=== PATIENT | female | born 1995 | race Caucasian/White ===

== ENCOUNTER 2016-09-20 20:30 | Outpatient (CLI) | payer OTHER ==
[2016-10-19] MEDS ORDERED: PRENATAL VIT1 TAB PO (11:20)
[2016-10-19] MEDS ORDERED: IRON325 M1 PO (11:20)
[2016-10-19] MEDS ORDERED: PROTONIX40 MG PO (11:20)
[2016-10-19] MEDS ORDERED: COLACE-DPS100 MG PO (11:20)
[2016-10-19] MEDS ORDERED: MOTRIN-DPS800 MG PO (11:21)
== END 2016-09-20 22:00 | disposition home or self-care (01) ==
LOC: BC 20:30
DX: O99.89 Other specified diseases and conditions complicating pregnancy, childbirth and the puerperium (principal); R10.2 Pelvic and perineal pain; Z3A.37 37 weeks gestation of pregnancy

== ENCOUNTER 2016-09-30 20:05 | Outpatient (CLI) | payer OTHER ==
[2016-10-19] MEDS ORDERED: IRON325 M1 PO (11:20)
[2016-10-19] MEDS ORDERED: COLACE-DPS100 MG PO (11:20)
[2016-10-19] MEDS ORDERED: PRENATAL VIT1 TAB PO (11:20)
[2016-10-19] MEDS ORDERED: PROTONIX40 MG PO (11:20)
[2016-10-19] MEDS ORDERED: MOTRIN-DPS800 MG PO (11:21)
== END 2016-09-30 22:20 | disposition home or self-care (01) ==
LOC: 2LDRP 20:05 → BC 20:05
DX: O99.89 Other specified diseases and conditions complicating pregnancy, childbirth and the puerperium (principal); R10.9 Unspecified abdominal pain; Z3A.39 39 weeks gestation of pregnancy

== ENCOUNTER 2016-10-08 19:20 | Outpatient (CLI) | payer OTHER, BC ==
[2016-10-19] MEDS ORDERED: COLACE-DPS100 MG PO (11:20)
[2016-10-19] MEDS ORDERED: PROTONIX40 MG PO (11:20)
[2016-10-19] MEDS ORDERED: IRON325 M1 PO (11:20)
[2016-10-19] MEDS ORDERED: PRENATAL VIT1 TAB PO (11:20)
[2016-10-19] MEDS ORDERED: MOTRIN-DPS800 MG PO (11:21)
== END 2016-10-08 21:32 | disposition home or self-care (01) ==
LOC: BC 19:20 → 2LDRP 19:20 → BC 21:32
DX: O99.89 Other specified diseases and conditions complicating pregnancy, childbirth and the puerperium (principal); R10.9 Unspecified abdominal pain; Z3A.39 39 weeks gestation of pregnancy

== ENCOUNTER 2016-10-13 06:45 | Outpatient (CLI) | payer OTHER, BC ==
[~2016-10-13] VITALS: Ht 170.2 cm; Wt 114.8 kg
[2016-10-19] MEDS ORDERED: IRON325 M1 PO (11:20)
[2016-10-19] MEDS ORDERED: PRENATAL VIT1 TAB PO (11:20)
[2016-10-19] MEDS ORDERED: PROTONIX40 MG PO (11:20)
[2016-10-19] MEDS ORDERED: COLACE-DPS100 MG PO (11:20)
[2016-10-19] MEDS ORDERED: MOTRIN-DPS800 MG PO (11:21)
== END 2016-10-13 09:25 | disposition home or self-care (01) ==
LOC: 2LDRP 06:45 → BC 06:45
DX: O47.1 False labor at or after 37 completed weeks of gestation (principal); Z3A.40 40 weeks gestation of pregnancy

== ENCOUNTER 2016-10-16 06:31 | Inpatient (IN) | payer OTHER, BC ==
[~2016-10-16] VITALS: Ht 170.2 cm; Wt 116.1 kg
--- NOTE | ~2016-10-16 | FD ---
ADMIT: 10/16/2016 RM/LOC: 202 [facility] MR#: [id number] [address] [address] NEERAJ ZUNIGA [address] [place] [address] Final Diagnosis SEX: F AGE: 21 : 1995 ADMISSION DATE: 10/16/2016 DISCHARGE DATE: 10/18/2016 FINAL DIAGNOSIS: 1. A 21-year-old 1 para 1-0-0-1, status post spontaneous vaginal delivery at 40 weeks 5 days. 2. Obesity. 3. hemorrhage, 1700 mL estimated blood loss. PROCEDURE: Spontaneous vaginal delivery. Michaela Mcgregor MD Resident / Pat Dumont MD / ashli JOB #: [id number] CC: Pat Dumont MD, Attending Physician UNKNOWN, Family Physician
[2016-10-19] MEDS ORDERED: IRON325 M1 PO (11:20)
[2016-10-19] MEDS ORDERED: PRENATAL VIT1 TAB PO (11:20)
[2016-10-19] MEDS ORDERED: COLACE-DPS100 MG PO (11:20)
[2016-10-19] MEDS ORDERED: PROTONIX40 MG PO (11:20)
[2016-10-19] MEDS ORDERED: MOTRIN-DPS800 MG PO (11:21)
--- NOTE | 2016-10-25 14:01 | HP ---
ADMIT: 10/16/2016 RM/LOC: 202 [facility] [id number] [id number] [address] NEERAJ ZUNIGA [address] [place] [address] History and Physical SEX: F AGE: 21 : 1995 DATE OF SERVICE: CHIEF COMPLAINT: Induction of labor. HISTORY OF PRESENT ILLNESS: This is a 21-year-old with intrauterine at 40 weeks and 5 days via an 11-week ultrasound, who presents for induction of labor for post dates. The patient has had intermittent contractions for multiple weeks, however, no regular contractions. She denies leaking of fluid or vaginal bleeding. She reports normal movement. Her has been complicated by acid reflux, anemia, and excessive weight gain in . PAST MEDICAL HISTORY: 1. Obesity 2. Anemia during . ALLERGIES: PENICILLIN - RASH. MEDICATIONS: 1. Iron. 2. vitamin. 3. Protonix. SURGERIES: Tonsils and adenoids. SOCIAL HISTORY: She is single, but father of baby is involved. She denies tobacco use, alcohol use, or recreational drug use. FAMILY HISTORY: Her paternal grandfather has diabetes mellitus. No known family history of hypertension or asthma. REVIEW OF SYSTEMS: She denies headache, changes of vision, chest pain, or shortness of breath. No nausea, vomiting, diarrhea, or constipation. She endorses swelling in bilateral lower extremities. LABORATORY DATA: Blood type is O positive. Direct antibody screen negative. Group B strep negative. Gonorrhea and chlamydia negative. HIV negative. RPR negative. Hepatitis B negative. Rubella immune. CBC pending at the time of admission. The patient failed 1-hour glucose tolerance test with a value of 163. Passed 3-hour test with values of 79, 178, 137, and 103. PHYSICAL EXAMINATION: VITAL SIGNS: Upon admission, blood pressure is 114/72, pulse is 104, she is afebrile, and respiratory rate is 16. Saturation 98% on room air. GENERAL: She is pleasant and in no acute distress. HEART: Regular rate and rhythm. LUNGS: Clear to auscultation bilaterally. ABDOMEN: Obese, gravid, estimated weight is 3800 g. heart rate is 140 baseline, moderate variability, positive accelerations, no decelerations. [place] is irregular. Sterile vaginal exam, 4, 80, and -1 at the time of presentation. ADMIT: 10/16/2016 RM/LOC: 202 [facility] MR#: [id number] [address] [address] NEERAJ ZUNIGA [address] [address] History and Physical SEX: F AGE: 21 : 1995 ASSESSMENT AND PLAN: This is a 21-year-old 1 para 0 with intrauterine at 40 weeks 5 days, here for induction of labor for post-EDC. 1. Admit to the Birthing Center. Consents were obtained verbally and written for vaginal delivery, assisted vaginal delivery, section. Plan for artificial rupture of membranes and Pitocin induction. Blood type is O positive. CBC upon admission. 2. Group B Streptococcus negative. Plan to monitor for signs and symptoms of infection and treat if needed. 3. heart rate category I. Continue to monitor throughout the labor process. 4. Maternal well being. She is doing well at this time and denies pain. Plan to continue to monitor for pain status and treat as needed. 5. Anemia. CBC upon admission. Continue with iron supplementation. 6. The patient was seen and discussed with staff physician on day of admission. Michaela Mcgregor MD Resident / Pat Dumont MD / lexie JOB #: [id number] CC: Pat Dumont, Attending Physician UNKNOWN, Family Physician
--- NOTE | 2016-10-25 14:01 | OR ---
ADMIT: 10/16/2016 RM/LOC: 202 [facility] MR#: [id number] [address] [address] NEERAJ ZUNIGA [address] [place] [address] Operative/Delivery Room Report SEX: F AGE: 21 : 1995 SURGERY DATE: 10/16/2016 SURGEON: Pat Dumont MD PROCEDURE: Spontaneous vaginal delivery. STAFF PHYSICIAN: Dr. Pat Dumont. RESIDENT: Michaela Mcgregor MD. PREPROCEDURE DIAGNOSES: 1. A 21-year-old, G1, P0 with intrauterine of 40 weeks and 5 days. 2. Obesity with excess weight gain in . 3. Acid reflux. POSTPROCEDURE DIAGNOSES: 1. A 21-year-old, G1, P1-0-0-1, status post spontaneous vaginal delivery. 2. First-degree perineal laceration, status post repair and right labial lacerations status post repair. FINDINGS: A viable female infant in DONOVAN presentation with a weight of 4150 g 7 and 9. Normal placenta with 3-vessel cord. ESTIMATED BLOOD LOSS: 300 mL. COMPLICATIONS: None. ANESTHESIA: The patient tolerated the procedure well with no anesthesia. HOSPITAL COURSE AND PROCEDURE: This is a 21-year-old, G1, P0 with intrauterine at 40 weeks and 5 days, who [facility] [place] for induction of labor for post dates. The patient was admitted and Pitocin induction was performed. AROM was performed. The patient ultimately progressed to complete with Pitocin induction. The patient was noted to be complete and expulsive efforts were begun. The patient was prepped and draped in a normal sterile fashion and placed in a dorsal lithotomy position. With expulsive efforts, the 's head was brought to the perineum. The 's head was delivered over an intact perineum. Head was restituted to the right. No nuchal cord was present. The anterior and posterior shoulder delivered without difficulty. The body followed. The infant was vigorous and crying, and was placed on the maternal abdomen. The was stimulated. Bulb suction was not performed. After 1 minute of delayed cord clamping, the ADMIT: 10/16/2016 RM/LOC: 202 [facility] MR#: [id number] [address] NEERAJ ZUNIGA [address] [place] [address] Operative/Delivery Room Report SEX: F AGE: 21 : 1995 's cord was clamped and cut. Cord blood was collected. Cord gas was not collected. The placenta delivered spontaneously with a 3-vessel cord. Pitocin was administered per protocol. The vagina, perineum, and cervix were inspected for lacerations. The patient was noted to have a first-degree perineal laceration, which was repaired in a running locked fashion with a 3-0 Vicryl suture. In addition, the patient was found to have a right labial laceration, which was repaired with a [id number] stitch of 3-0 vicryl. The fundus was found to be firm and below the umbilicus. All tissues were found to be hemostatic and counts were correct x2. At the completion of the procedure, the and mother were stable in the mother's room. Dr. Pta Dumont was present for the entire delivery. Michaela Mcgregor MD Resident / Pat Dumont MD / jael JOB #: [id number] CC: Pat Dumont, Attending Physician UNKNOWN, Family Physician
== END 2016-10-18 11:45 | disposition home or self-care (01) | DRG 774 ==
LOC: BC 06:31 → 2LDRP 06:31
PROVIDERS: ADMIT Obstetrics & Gynecology
PROC: 10907ZC Drainage of Amniotic Fluid, Therapeutic from Products of Conception, Via Natural or Artificial Opening (ICD-10-PCS; principal; 2016-10-16)
PROC: 0UQMXZZ Repair Vulva, External Approach (ICD-10-PCS; principal; 2016-10-16)
PROC: 0HQ9XZZ Repair Perineum Skin, External Approach (ICD-10-PCS; principal; 2016-10-16)
PROC: 10E0XZZ Delivery of Products of Conception, External Approach (ICD-10-PCS; principal; 2016-10-16)
PROC: 3E033VJ Introduction of Other Hormone into Peripheral Vein, Percutaneous Approach (ICD-10-PCS; principal; 2016-10-16)
DX: O48.0 Post-term pregnancy (principal); O72.1 Other immediate postpartum hemorrhage; D62 Acute posthemorrhagic anemia; O99.62 Diseases of the digestive system complicating childbirth; K21.9 Gastro-esophageal reflux disease without esophagitis; O99.02 Anemia complicating childbirth; D64.9 Anemia, unspecified; O99.214 Obesity complicating childbirth; E66.9 Obesity, unspecified; O26.03 Excessive weight gain in pregnancy, third trimester; O70.0 First degree perineal laceration during delivery; Z68.33 Body mass index [BMI] 33.0-33.9, adult; Z3A.40 40 weeks gestation of pregnancy; Z37.0 Single live birth